=== PATIENT | male | born 1955 | race Caucasian/White ===

== ENCOUNTER 2016-06-22 05:41 | Day surgery (SDC) | payer MEDICARE, MEDICAID ==
[~2016-06-22] VITALS: Ht 176.8 cm; Wt 82.6 kg
[~2016-06-22 05:41] MED LIST: ACETAMINOPHEN500 M1 PO; ADVAIR 100/501 DISK INH; DEMEROL50 MG PO; IBUPROFEN800 MG PO; NEXIUM40 MG PO; OMEPRAZOLE20 M1 PO; PERCOCET 10/3251 TA1; PERCOCET 10/3251 TA1 PO; PHENERGAN25 M1 PO; PRAVASTATIN SOD10 MG PO; PRILOSEC20 MG PO; PROBIOTIC1 EAC1 PO; ROBAXIN-750750 MG PO; VENTOLIN HFA18 GM INH
[2016-06-22] MEDS ORDERED: ADVAIR 250/501 DISK INH (06:28)
[2016-06-22] MEDS ORDERED: VENTOLIN HFA18 GM INH (06:28)
[2016-06-22 06:33] VITALS: BP 128/83; Ht 176.8 cm; Wt 82.6 kg
[2016-06-22] MEDS ORDERED: HYDROCODONE-APA1 TAB PO (09:04)
[2016-06-22] MEDS ORDERED: ROBAXIN-750750 MG PO (09:04)
--- NOTE | 2016-06-22 10:55 | NUR ---
1030 IV DC WITH CATHER TIP INTACT
--- NOTE | 2016-06-28 08:25 | OP ---
PATIENT NAME: CAROLINE BRAVO JR MEDICAL RECORD: [id number] :57 LOCATION:[facility] ADMISSION DATE: SURGEON: AURA BLACK MD DATE OF OPERATION: 06/22/2016 PREOPERATIVE DIAGNOSES: Right shoulder rotator cuff tear and impingement. POSTOPERATIVE DIAGNOSES: Right shoulder rotator cuff tear and impingement. PROCEDURE PERFORMED: Right shoulder arthroscopic decompression and open rotator cuff repair. SURGEON: Colin Black MD ANESTHESIA: General with interscalene block for postop pain. CONDITION: The patient tolerated procedure well and was transferred to the recovery room in stable condition at termination of the procedure. INDICATIONS: This is a 60-year-old gentleman who has had a previous rotator cuff repair. He has complained that he was not progressing. His MRI showed that it looked like a possible new tear. We discussed the options. He wanted to go and proceed to do a redo surgery. We discussed risks, benefits, and alternatives including the risk that it is less likely to be successful. He understood and wished to proceed. OPERATIVE REPORT: The patient was taken to the operating room and placed in supine position. General anesthesia was obtained. He did have interscalene block placed in the preop holding area. In the operating room, his portal sites were marked and injected with 0.25% Marcaine with epinephrine. I placed the scope in the posterior portal. From this portal, I checked and he did have some fraying of his labrum, but no distinct tear. The glenohumeral joint still looked overall very good. I did inspect under the surface area of the cuff and from the infraspinatus coming in forward, he looked like that all of his repair was intact. Getting to the front, there was a hole in the front portion, this was the only area that I could identify a tear in his cuff. Everything else has actually looked very good. I did osbaldo the spot with a needle. Once this was accomplished, I then made an open incision over the needle, took this down, split the deltoid and identified this tear, put 3 suture punch suture anchors into it and pulled this over to the bone with a 4.5 [place] suture anchor. This did show a very good head coverage, it did not show any remnants within the cuff. Having accomplished this, I therefore copiously irrigated, then closed with 2-0 Vicryl, then 3-0 Prolene. His portal sites were closed with 3-0 Prolene. He was then awakened and transferred to recovery room in stable condition, having tolerated the procedure well. TRANSINT:[id number] Voice Confirmation ID: [id number] DOCUMENT ID: [id number] OPERATIVE REPORT [id number] CAROLINE BRAVO JR, AURA CLEMONS MD at 0825 CC: [id number] DICTATION DATE: 06/22/16 09 ROUTER SETTER: 06/22/[address] [facility] [place] [place] 06/22/16 [address] [place] [address]
--- NOTE | 2016-07-31 12:19 | HP ---
PATIENT: CAROLINE HERNANDEZ JR MEDICAL RECORD: [id number] ACCOUNT: [id number] LOCATION:[facility] : 57 ADMISSION DATE: 06/22/16 HISTORY AND PHYSICAL EXAMINATION DATE: 06/22/2016 HISTORY OF PRESENT ILLNESS: Mr. Hernandez is a pleasant 60-year-old gentleman, who has been having problems with his shoulder. This has been ongoing for fairly significant amount of time. We have tried to repair him previously. He has continued to have problems with this without resolution. He comes back in for continued followup of right shoulder pain and has had a repeat MRI. ALLERGIES: He has no allergies. MEDICATIONS: He takes Tylenol 3 occasionally. He takes an Advair Diskus. He takes azithromycin, Carafate, ciprofloxin, doxycycline, gemfibrozil, ibuprofen, methocarbamol, Nexium. He has been on multiple pain meds, prednisone, promethazine, ranitidine, temazepam and ____. PAST MEDICAL HISTORY: He has a history of shoulder repair previously, he has had both shoulders. He has had a trigger finger release. He has had a left hand second digit surgery. SOCIAL HISTORY: He does not smoke currently, does not drink. PHYSICAL EXAMINATION: VITAL SIGNS: Height is 5 foot 9 inches, weight is 182. Blood pressure 136/80, pulse 68. BMI is 26.9. HEENT: Within normal limits. CARDIOVASCULAR: Regular rhythm. LUNGS: Clear. ABDOMEN: Benign. EXTREMITIES: Examination of his right shoulder reveals about elevation to about 100 degrees, external rotation 10 degrees, internal rotation to the flank. He has weakness with abduction and external rotation. He is neurovascularly intact. ASSESSMENT: He has a retear of his right rotator cuff. PLAN: To bring him to the hospital for rotator cuff repair. We discussed risks, benefits, and alternatives. He understands and wishes to proceed. We will proceed from this juncture. TRANSINT:[id number] Voice Confirmation ID: [id number] DOCUMENT ID: [id number] HISTORY AND PHYSICAL [id number] CAROLINE HERNANDEZ JR STEVE, AURA CLEMONS MD at 1219 CC: [id number] DICTATION DATE: 07/13/16 1202 GRAPPLE YARDER OPERATOR: 07/13/16 1235 [facility] 06/22/16 [facility] [address] [place] [address]
== END 2016-06-22 10:45 | disposition home or self-care (01) ==
LOC: D.OPS 05:41 → D.PAN 07:00 → D.OPS 07:50
DX: M75.101 Unspecified rotator cuff tear or rupture of right shoulder, not specified as traumatic (principal); M75.41 Impingement syndrome of right shoulder

== ENCOUNTER 2016-07-14 14:22 | Emergency (ER) | payer MEDICARE, MEDICAID ==
[2016-06-22 06:33] VITALS: BMI 26.4
[~2016-07-14 14:22] MED LIST changes: +ADVAIR 250/501 DISK INH; +HYDROCODONE-APA1 TAB PO
== END 2016-07-14 16:00 | disposition home or self-care (01) ==
LOC: D.ER 14:22
DX: S43.402A Unspecified sprain of left shoulder joint, initial encounter (principal); X58.XXXA Exposure to other specified factors, initial encounter; Y93.89 Activity, other specified; Y92.89 Other specified places as the place of occurrence of the external cause

== ENCOUNTER → 2017-11-22 09:15 | Outpatient (CLI) | payer MEDICARE ==
[2016-06-22 06:33] VITALS: BMI 26.4
== END | disposition home or self-care (01) ==
LOC: D.MRI 09:15
DX: M75.122 Complete rotator cuff tear or rupture of left shoulder, not specified as traumatic (principal)

== ENCOUNTER 2020-11-21 23:32 | Inpatient (IN) | payer MEDICARE ==
[~2020-11-21] VITALS: Ht 176.8 cm; Wt 84.1 kg
[2020-11-22 00:08] LABS: BASOPHILS 0.5 % (0-2); EOSINOPHILS 2.3 % (0-7); HEMOGLOBIN 15.7 g/dL (13.5-17.5); LYMPHOCYTES 27.9 % (15-50); MCH 30.5 pg (26.0-34.0); MCHC 34.9 g/dL (31.0-37.0); MCV 87.6 fL (80.0-100.0); MEAN PLATELET VOLUME 8.3 fL (7.4-10.4); MONOCYTES 8.5 % (2-11); NEUTROPHILS 60.8 % (40-80); PLATELET COUNT 216 10x3/uL (130-400); RBC 5.13 10x6/uL (4.20-6.10); WBC 9.9 10x3/uL (4.8-10.8)
[2020-11-22 00:16] LABS: CALC OSMOLALITY 284 mosm/kg (275-300); CARBON DIOXIDE 24.9 mmol/L (21.0-32.0); CHLORIDE - SERUM 107 mmol/L (98-107); CREATININE - SERUM 1.1 mg/dL (0.6-1.3); GLUCOSE 119 mg/dL (74-106); POTASSIUM - SERUM 3.8 mmol/L (3.5-5.1); SODIUM 142 mmol/L (136-145); UREA NITROGEN 14 mg/dL (7-18); eGFR NON AFRICAN AMERICAN 72 mL/min (90-120)
[2020-11-22 00:25] LABS: APTT 28.9 SECONDS (22.8-39.4); INR 1.06 (0.85-1.17); PROTIME 12.8 SECONDS (11.6-15.0)
[2020-11-22 00:26] LABS: D-DIMER-QUANTITATIVE 0.51 ug/mLFEU (0.20-0.54)
[2020-11-22 00:30] LABS: ALBUMIN 3.7 g/dL (3.4-5.0); ALKALINE PHOSPHATASE 142 U/L (30-120); BILIRUBIN - TOTAL 1.01 mg/dL (0.2-1.3); LIPASE 57 U/L (73-393); MAGNESIUM - SERUM 2.1 mg/dL (1.8-2.4); PRO BNP 26 pg/mL (0-125); PROTEIN - SERUM 6.9 g/dL (6.4-8.2); TROPONIN-I < 0.017 ng/mL (0.000-0.060)
[2020-11-22 00:32] LABS: ALT (SGPT) 41 U/L (10-68)
[2020-11-22 03:01] LABS: BILIRUBIN NEGATIVE (NEGATIVE); KETONE NEGATIVE mg/dL (< 1+); NITRITE NEGATIVE (NEGATIVE); PH 5.5 (5.0-8.0); UROBILINOGEN NORMAL mg/dL (< 2); WHITE CELLS - URINE 6 HPF (0-1)
--- NOTE | 2020-11-22 05:20 | NUR ---
CARDIOLOGY PAGED FOR CONSULT
[2020-11-22 06:53] LABS: ALBUMIN 3.4 g/dL (3.4-5.0); ALKALINE PHOSPHATASE 127 U/L (30-120); ALT (SGPT) 37 U/L (10-68); BILIRUBIN - TOTAL 0.93 mg/dL (0.2-1.3); CALC OSMOLALITY 286 mosm/kg (275-300); CALCIUM 8.2 mg/dL (8.5-10.1); CARBON DIOXIDE 25.1 mmol/L (21.0-32.0); CHLORIDE - SERUM 109 mmol/L (98-107); CHOL - HDL RATIO 6.5 ratio (2.3-4.9); CHOLESTEROL, TOTAL 228 mg/dL (0-200); CKMB 0.2 U/L (0.0-3.6); CREATINE KINASE 42 UL (21-232); GLUCOSE 111 mg/dL (74-106); HDL CHOLESTEROL 35 mg/dL (32-96); LDL CHOLESTEROL 128 mg/dL (0-100); LDL-HDL RATIO 3.7 ratio (1.5-3.5); MAGNESIUM - SERUM 2.1 mg/dL (1.8-2.4); PHOSPHOROUS 3.8 mg/dL (2.5-4.9); PROTEIN - SERUM 6.4 g/dL (6.4-8.2); SODIUM 143 mmol/L (136-145); TRIGLYCERIDE 328 mg/dL (30-200); TROPONIN-I < 0.017 ng/mL (0.000-0.060); UREA NITROGEN 15 mg/dL (7-18); eGFR NON AFRICAN AMERICAN 80 mL/min (90-120)
--- NOTE | 2020-11-22 08:15 | NUR ---
PATIENT NOTIFIED THAT HE IS NPO FOR THE TIME BEING, HE CAN HAVE WATER, ALSO NOTIFIED THAT HE CANT HAVE CAFFINE THIS AM UNTIL AFTER STRESS TEST. NO NEED VOICED AT THIS TIME. CALL LIGHT WITH IN REACH AND BED IN LOWEST LOCKED POSITION.
[2020-11-22 15:33] VITALS: BP 138/89; Ht 176.8 cm; Wt 84.1 kg
[2020-11-22 16:45] VITALS: BP 138/89
--- NOTE | 2020-11-22 18:01 | NUR ---
NURSE REPORTS TO MALLORY BOSWELL THAT DR ARAMBULA SAYS OKAY TO DC FROM CARDIAC STAND BY DUE TO NORMAL STRESS TEST.
[2020-11-22 19:00] VITALS: BP 118/74
--- NOTE | 2020-11-22 19:23 | NUR ---
PT AMBULATING IN [place], GAIT STEADY. PT AKSING ABOUT GOING HOME, INFORMED PT THAT THERE ARE CURRENTLY NO ORDERS TO SEND HIM HOME TONIGHT, PT OK WITH STAYING OVER NIGHT.
[2020-11-23] VITALS: BP 108/52
--- NOTE | 2020-11-23 02:34 | NUR ---
I have reviewed this patient and I concur with the Shift Assessment completed by the Licensed Practical Nurse today this shift.
[2020-11-23 04:00] VITALS: BP 107/57
[2020-11-23 06:49] LABS: BASOPHILS 0.6 % (0-2); EOSINOPHILS 2.6 % (0-7); HEMATOCRIT 40.9 % (42.0-54.0); HEMOGLOBIN 14.2 g/dL (13.5-17.5); MCH 30.2 pg (26.0-34.0); MCHC 34.7 g/dL (31.0-37.0); MCV 86.9 fL (80.0-100.0); MEAN PLATELET VOLUME 8.7 fL (7.4-10.4); MONOCYTES 8.6 % (2-11); NEUTROPHILS 63.2 % (40-80); PLATELET COUNT 184 10x3/uL (130-400); RDW 12.9 % (11.5-14.5); WBC 8.5 10x3/uL (4.8-10.8)
[2020-11-23 07:12] LABS: ALBUMIN 3.3 g/dL (3.4-5.0); ANION GAP 10.9 mmol/L (8-16); BILIRUBIN - TOTAL 1.23 mg/dL (0.2-1.3); CARBON DIOXIDE 27.4 mmol/L (21.0-32.0); CREATININE - SERUM 1.1 mg/dL (0.6-1.3); MAGNESIUM - SERUM 2.3 mg/dL (1.8-2.4); PHOSPHOROUS 3.7 mg/dL (2.5-4.9); POTASSIUM - SERUM 4.3 mmol/L (3.5-5.1); PROTEIN - SERUM 6.1 g/dL (6.4-8.2)
[2020-11-23 08:00] VITALS: BP 120/82
[2020-11-23] MEDS ORDERED: LIPITOR20 MG PO (10:39)
[2020-11-23] MEDS ORDERED: PROTONIX40 MG PO (10:40)
[2020-11-23] MEDS ORDERED: CARAFATE1 G PO (10:40)
--- NOTE | 2020-11-23 12:21 | NUR ---
NURSE REVIEWS DISCHARGE INSTRUCTIONS WITH PATIENT AT THIS TIME. PT 'S PHARMACY REVIEWED WITH HIM AND CONFIRMED. PATIENT DENIES QUESTIONS OR NEEDS. WILL CALL OUT WHEN READY TO GO . CALL LIGHT IN REACH
--- NOTE | 2020-11-23 13:44 | EC ---
PATIENT:CAROLINE BRAVO JR DATE OF SERVICE: 11/22/20 SEX: M MEDICAL RECORD: [id number] DATE OF : 57 LOCATION:[facility]. D.212 AGE OF PATIENT: 64 ADMISSION DATE: 11/22/20 REFERRING PHYSICIAN: INTERPRETING PHYSICIAN: AISHWARYA ALLEN MD ECHOCARDIOGRAM REPORT ECHO CHARGES 4 ECHO COMPLETE Date: 11/22/20 CLINICAL DIAGNOSIS: CP ECHOCARDIOGRAPHIC MEASUREMENTS (adult normal given) AC root (d.<3.7cm) 3.2 cm LV Septum d (<1.2 cm> 0.9 cm Valve Excursion 1.7 cm LV Septum (systole) 1.2 cm Left Atria (s.<4.0cm> 3.6 cm LVPW d(<1.2cm) 0.9 cm RV (d.<2.3cm) 2.9 cm LVPW (sytole) 1.3 cm LV diastole(<5.6CM) 4.7 cm MV E-F(>70mm/sec) cm LV systole 3.1 cm LVOT Diameter 1.7 cm MV exc.(>10mm) 1.4 cm Est.ejection fraction (50-75%) % DOPPLER: LVIT cm/sec A 81 cm/sec E 82 cm/sec LA cm/sec RVSP 21 mmHg LVOT 87 cm/sec AOP1/2T m/s Asc. Ao 112 cm/sec RVOT 45 cm/sec RA cm/sec PA 87 cm/sec AV Gradient Peak 5.0 mmHg AV Mean 2.5 mmHg AV Area 1.9 cm MV Gradient Peak 3.1 mmHg MV Mean 1.5 mmHg MV Area cm COMMENTS: Stock Receiver: Sandra [facility] Rn Psychiatric: 2 Dr. Topete TAPE# Pericardial Effusion N DATE OF SERVICE: CLINICAL INDICATION: Chest pain. INTERPRETATION: Normal left ventricular chamber size and contractile function with ejection fraction of 55% to 60%. FINDINGS: Left atrium appears normal. Right atrium and right ventricular chamber size and function appears normal. Aortic valve appears normal. No aortic regurgitation or stenosis. Mitral valve appears normal. No mitral ECHOCARDIOGRAM REPORT [id number] CAROLINE BRAVO JR regurgitation. Tricuspid valve appears normal. Trace tricuspid regurgitation. Pulmonic valve not well visualized. No pulmonary regurgitation. No pericardial effusion visualized. IMPRESSION: Normal left ventricular chamber size and contractile function, ejection fraction 55% to 60%. TRANSINT:[id number] Voice Confirmation ID: [id number] DOCUMENT ID: [id number] AISHWARYA ALLEN MD at 1344 CC: [id number] DICTATION DATE: 11/22/20 161 BLIND TEACHER: 11/22/20 1836 [facility] IN 11/23/20 [facility] [address] [id number]
== END 2020-11-23 13:08 | disposition home or self-care (01) | DRG 311 ==
LOC: D.ER 23:32 → D.EDHOLD 11-22 01:32 → OBSVTIME 11-22 01:32 → D.M2 11-22 14:16
PROVIDERS: Family Medicine; ADMIT Emergency Medicine; ATTEND Emergency Medicine
DX: I20.0 Unstable angina (principal); I10 Essential (primary) hypertension; J44.9 Chronic obstructive pulmonary disease, unspecified; I49.1 Atrial premature depolarization; K21.9 Gastro-esophageal reflux disease without esophagitis